=== PATIENT | female | born 1970 | race Caucasian/White ===

== ENCOUNTER 2019-06-05 19:13 | Emergency (ER) | payer BC ==
--- NOTE | 2019-06-05 19:19 | EDM.PDOC ---
ED HPI GENERAL MEDICAL PROBLEM - General Stated Complaint: CHEST PAIN Time Seen by Provider: 06/05/19 19:15 Source of Information: Reports: Patient History Limitations: Reports: No Limitations - History of Present Illness INITIAL COMMENTS - FREE TEXT/NARRATIVE: 49-year-old female who is transferred to the emergency department from the walk- in clinic this evening secondary to bilateral PE found on CTA of chest. She reports that beginning about 2 weeks ago she developed pain in her right shoulder and upper back that was a sharp and nagging type pain that seemed to be worse with breathing and with certain movements and then the pain seemed to move to her right upper and mid posterior back and lateral chest. She was seen initially by a chiropractor with no relief and begin to develop feelings of shortness of breath with activity and with lying down which has progressively worsened and it caused her to come to the clinic for evaluation today. She has had no hemoptysis. She has had no fevers or chills. No nausea or vomiting. No cough. No syncope or presyncope. The pain in her back and lateral chest is rated by her as a 6/10 now and it is a sharp pain. When she has a deep breath or lying down, the pain goes up to a 9/10. She has had some problems with her left knee and lower leg beginning in March 2019 where she had what was felt to be a ruptured Serna's cyst and fracture in her knee that was found on MRI and she has had pain and swelling and her left calf has been present since last March 2019. There are no other associated signs or symptoms. There are no other modifying factors. Duration: Getting Worse Location: Reports: Chest, Back Quality: Reports: Ache, Sharp Severity: Moderate (o severe) Improves with: Reports: Rest Worsens with: Reports: Breathing, Other (Activity) Context: Reports: Other (As above) Associated Symptoms: Reports: Chest Pain, Shortness of Breath Treatments [employer]: Reports: Other (see below) (Nothing) Back Pain Score (Numeric/FACES): 6 - Related Data Allergies Allergy/AdvReac Type Severity Reaction Status Date / Time No Known Allergies Allergy Verified 06/05/19 19:31 Home Meds: Home Meds Norgestrel-Ethinyl Estradiol [Elinest-28 Tablet] 1 tab PO DAILY 06/05/19 [ History] Past Medical History - Past Health History Medical/Surgical History: Denies Medical/Surgical History (Surgical history as detailed below.) - Past Surgical History Musculoskeletal Surgical History: Reports: Arthroscopic Knee (Left) Oncologic Surgical History: Reports: Other (See Below) (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.) Social & Family History - Family History Cardiac: Reports: Blood Clots/VTE/DVT (In multiple family members) - Tobacco Use Smoking Status *Q: Never Smoker - Alcohol Use Alcohol Use History: Yes Alcohol Use Frequency: Socially (Some alcohol just this past weekend.) - Living Situation & Occupation Living situation: Reports: Social History Comment: Lives in [place], [place] ED ROS GENERAL - Review of Systems Review Of Systems: See Below Constitutional: Reports: No Symptoms HEENT: Reports: No Symptoms Respiratory: Reports: Shortness of Breath, Pleuritic Chest Pain Cardiovascular: Reports: Chest Pain, Dyspnea on Exertion, Orthopnea, Palpitations (Somewhat fast heart rate) Endocrine: Reports: No Symptoms GI/Abdominal: Reports: No Symptoms : Reports: No Symptoms, Other (Patient is on control pills) Musculoskeletal: Reports: Back Pain (Left upper back) Skin: Reports: No Symptoms Neurological: Reports: No Symptoms Psychiatric: Reports: Anxiety Hematologic/Lymphatic: Reports: No Symptoms Immunologic: Reports: No Symptoms ED EXAM, GENERAL - Physical Exam Exam: See Below Exam Limited By: No Limitations General Appearance: Alert, WD/WN, Anxious, Mild Distress Eye Exam: Bilateral Eye: EOMI, Normal Inspection, PERRL Ears: Normal External Exam, Hearing Grossly Normal Ear Exam: Bilateral Ear: Auricle Normal Nose: Normal Inspection, Normal Mucosa, No Blood Throat/Mouth: Normal Inspection, Normal Lips, Normal Oropharynx, Normal Voice, No Airway Compromise Head: Atraumatic, Normocephalic Neck: Normal Inspection, Supple, Non-Tender, Full Range of Motion Respiratory/Chest: No Respiratory Distress, Normal Breath Sounds, No Accessory Muscle Use, Chest Non-Tender, Rales (In right base). No: Wheezing Cardiovascular: Normal Peripheral Pulses, No Gallop, No Murmur, Tachycardia Peripheral Pulses: 2+: Radial (L), Radial (R), Dorsalis Pedis (L), Dorsalis Pedis (R) GI/Abdominal: Normal Bowel Sounds, Soft, Non-Tender, No Mass Back Exam: Normal Inspection, Full Range of Motion Extremities: Normal Capillary Refill, Pedal Edema (Swelling and left lower leg area), Leg Pain (Pain in left calf with no venous cord palpated) Neurological: Alert, Oriented, CN II-XII Intact, Normal Cognition, No Motor/ Sensory Deficits Psychiatric: Anxious Skin Exam: Warm, Dry, Intact, Normal Color EKG INTERPRETATION EKG Date: 06/05/19 Time: 19:20 Rhythm: Other (Sinus tachycardia) Rate (Beats/Min): 116 [place]: RAD-Right [place] Deviation P-Wave: Present QRS: Normal ST-T: Normal QT: Normal Comparison: NA - No Prior EKG Course - Vital Signs Last Recorded V/S: Last Vital Signs Temp 37.4 C 06/05/19 20:55 Pulse 118 H 06/05/19 20:55 Resp 27 H 06/05/19 20:55 BP 121/80 06/05/19 20:55 Pulse Ox 100 06/05/19 20:55 - Orders/Labs/Meds Orders: Active Orders 24 hr Category Date Time Status Cardiac Monitoring [RC] .As Directed Care 06/05/19 19:18 Active EKG Documentation Completion [RC] ASDIRECTED Care 06/05/19 19:18 Active EKG 12 Lead [EK] Routine Ther 06/05/19 19:18 Ordered Labs: Laboratory Tests 06/05/19 06/05/19 06/05/19 Range/Units 17:25 17:25 19:25 WBC 13.6 H (4.5-12.0) X10-3/uL RBC 4.25 (3.23-5.20) x10(6)uL Hgb 13.3 (11.5-15.5) g/dL Hct 37.2 (30.0-51.3) % MCV 87.6 (80-96) fL MCH 31.3 (27.7-33.6) pg MCHC 35.7 H (32.2-35.4) g/dL RDW 12.4 (11.5-15.5) % Plt Count 309 (125-369) X10(3)uL MPV 7.7 (7.4-10.4) fL Neut % (Auto) 85.5 H (46-82) % Lymph % (Auto) 8.5 L (13-37) % [place] % (Auto) 4.1 (4-12) % Eos % (Auto) 2 (1.0-5.0) % Baso % (Auto) 0 (0-2) % Neut # (Auto) 11.5 H (1.6-8.3) # Lymph # (Auto) 1.2 (0.6-5.0) # [place] # (Auto) 0.6 (0.0-1.3) # Eos # (Auto) 0.2 (0.0-0.8) # Baso # (Auto) 0.1 (0.0-0.2) # PT 9.9 (8.7-11.1) INR 1.02 (0.89-1.13) APTT 23.7 L (24.4-33.2) SECONDS Sodium (135-145) mmol/L Potassium (3.5-5.3) mmol/L Chloride (100-110) mmol/L Carbon Dioxide (21-32) mmol/L BUN (7-18) mg/dL Creatinine (0.55-1.02) mg/dL Est Cr Clr Drug Dosing mL/min Estimated GFR (MDRD) (>60) BUN/Creatinine Ratio (9-20) Glucose (80-116) mg/dL Calcium (8.6-10.2) mg/dL Magnesium (1.8-2.5) mg/dL Total Bilirubin (0.1-1.3) mg/dL AST (5-25) IU/L ALT (12-36) U/L Alkaline Phosphatase (56-112) IU/L NT-Pro-B Natriuret Pep 57 (<=125) pg/mL Total Protein (6.0-8.0) g/dL Albumin (3.5-5.2) g/dL Globulin g/dL Albumin/Globulin Ratio 06/05/19 Range/Units 19:25 WBC (4.5-12.0) X10-3/uL RBC (3.23-5.20) x10(6)uL Hgb (11.5-15.5) g/dL Hct (30.0-51.3) % MCV (80-96) fL MCH (27.7-33.6) pg MCHC (32.2-35.4) g/dL RDW (11.5-15.5) % Plt Count (125-369) X10(3)uL MPV (7.4-10.4) fL Neut % (Auto) (46-82) % Lymph % (Auto) (13-37) % [place] % (Auto) (4-12) % Eos % (Auto) (1.0-5.0) % Baso % (Auto) (0-2) % Neut # (Auto) (1.6-8.3) # Lymph # (Auto) (0.6-5.0) # [place] # (Auto) (0.0-1.3) # Eos # (Auto) (0.0-0.8) # Baso # (Auto) (0.0-0.2) # PT (8.7-11.1) INR (0.89-1.13) APTT (24.4-33.2) SECONDS Sodium 138 (135-145) mmol/L Potassium 3.7 (3.5-5.3) mmol/L Chloride 100 (100-110) mmol/L Carbon Dioxide 26 (21-32) mmol/L BUN 10 (7-18) mg/dL Creatinine 0.8 (0.55-1.02) mg/dL Est Cr Clr Drug Dosing 84.54 mL/min Estimated GFR (MDRD) > 60 (>60) BUN/Creatinine Ratio 12.5 (9-20) Glucose 104 (80-116) mg/dL Calcium 9.1 (8.6-10.2) mg/dL Magnesium 1.8 (1.8-2.5) mg/dL Total Bilirubin 0.5 (0.1-1.3) mg/dL AST 18 (5-25) IU/L ALT 23 (12-36) U/L Alkaline Phosphatase 73 (56-112) IU/L NT-Pro-B Natriuret Pep (<=125) pg/mL Total Protein 7.8 (6.0-8.0) g/dL Albumin 3.6 (3.5-5.2) g/dL Globulin 4.2 g/dL Albumin/Globulin Ratio 0.9 Meds: Medications Discontinued Medications Generic Name Dose Route Start Last Admin Trade Name Freq PRN Reason Stop Dose Admin Heparin Sodium (Porcine) 6,000 units 06/05/19 20:23 06/05/19 20:31 Heparin Sodium IVPUSH 06/05/19 20:24 6,000 units ONETIME ONE Administration Heparin Sodium/Sodium Chloride 25,000 units in 500 mls @ 26 mls/hr 06/05/19 20 :23 06/05/19 20:49 Heparin 25,000 Units In 1/2 Ns 500 Ml IV 06/06/19 15:36 26 mls/hr NOW STA 26 mls/hr Administration Protocol Sodium Chloride 1,000 mls @ 150 mls/hr 06/05/19 20:30 06/05/19 20:32 Normal Saline IV 150 mls/hr ASDIRECTED JANICE Administration - Radiology Interpretation Free Text/Narrative:: CTA of chest shows bilateral pulmonary emboli with right greater than left and there was an evidence of right lower lobe pulmonary infarction. This was per Dr. Flores. - Re-Assessments/Exams Free Text/Narrative Re-Assessment/Exam: 06/05/19 19:45: I discussed the CT findings with the patient and the need to discuss her case with an interventional radiologist and also the need for admission. She has directed me to discuss her case with the doctors at [facility] at this point. 06/05/19 19:55: Patient with tachycardia and bilateral pulmonary emboli year chest. Her O2 saturations are normal. Her blood pressure is in the 140 systolic range. I did call and discuss the patient's case with Dr. Daugherty, interventional radiologist at [facility] in [place], and he reviewed the patient's scan and I conveyed to him the patient's history urination and he feels that the patient would need directed thrombolytic therapy at this time. He felt that if the patient had decompensation then saturation for thrombolytic therapy would occur at that time. He did recommend that the patient be admitted with IV heparin therapy at this point and have close cardiac monitoring. 06/05/19 20:10: There are no appropriate monitored bed availability at [facility] [place] at this time. Therefore, the patient will need transfer to another facility with those services and it would be best if she were at a facility interventional radiology capabilities if she has any decompensation. Therefore, I called and discussed the patient's case with Dr. Small, hospitalist at [facility] in [place], and he has agreed to accept the patient in transfer. The patient will be treated with IV heparin therapy via VTE protocol and the patient will be transferred via [facility] ambulance service to [facility] for direct admission. I discussed this with the patient and she is in agreement with this plan. We will continue close monitoring. Departure - Departure Time of Disposition: 21:15 Disposition: DC/Tfer to [facility] 02 Reason for Transfer *Q: Other (Patient with bilateral PE. No appropriate beds available at [facility] [place]) Condition: Fair (Guarded) Clinical Impression: Bilateral pulmonary embolism, Tachycardia Referrals: Hallie Shell, [employer] [Primary Care Provider] - Sepsis Event Note - Focused Exam Vital Signs: Vital Signs Temp Pulse Resp BP Pulse Ox 06/05/19 20:55 37.4 C 118 H 27 H 121/80 100 06/05/19 20:19 37.8 C 06/05/19 19:15 37.9 C 121 H 21 H 143/79 H 100 Date Exam was Performed: 06/05/19 Time Exam was Performed: 23:54 - My Orders Last 24 Hours: My Active Orders 06/05/19 19:18 Cardiac Monitoring [RC] .As Directed EKG Documentation Completion [RC] ASDIRECTED EKG 12 Lead [EK] Routine - Assessment/Plan Last 24 Hours: My Active Orders 06/05/19 19:18 Cardiac Monitoring [RC] .As Directed EKG Documentation Completion [RC] ASDIRECTED EKG 12 Lead [EK] Routine
[2019-06-05] MEDS ORDERED: Heparin Sodium 5,000 Units/ML Vial IVPUSH ONE (20:23)
[2019-06-05] MEDS ORDERED: Heparin Sodium/0.45% NaCl 25,000 UNITS/500 ML BAG IV STA (20:23)
[2019-06-05] MEDS ORDERED: Sodium Chloride 0.9% 1,000 ML IV SCH (20:30)
== END 2019-06-05 21:15 ==
LOC: FB.ED 19:13
DX: I26.99 Other pulmonary embolism without acute cor pulmonale (principal); R00.0 Tachycardia, unspecified
CPT/HCPCS: 80053; 83735; 83880; 85025; 85610; 85730; 93005; 96365; 96376; 99285-25; J1644; J7030